=== PATIENT | female | born 1930 | race Caucasian/White ===

== ENCOUNTER 2017-02-06 12:21 | Inpatient (IN) | payer MEDICARE ==
[~2017-02-06] VITALS: Ht 152.4 cm; Wt 45.1 kg
[2017-02-06] MEDS ORDERED: PANT20TA PO (12:35)
[2017-02-06] MEDS ORDERED: SERT50TA PO (12:35)
[2017-02-06] MEDS ORDERED: LEVO50TA5 PO (12:35)
[2017-02-06] MEDS ORDERED: DONE5TAB17 PO (12:35)
[2017-02-06] MEDS ORDERED: ATEN50TA2 PO (12:35)
[2017-02-06 13:19] LABS: DIFF SLIDE NUMBER 148; MEAN CORPUSCULAR HEMOGLOBIN 28.3 pg (27.0-33.0); MEAN CORPUSCULAR HGB CONC 32.3 g/dl (32.0-36.5); MEAN CORPUSCULAR VOLUME 87.5 fl (80.0-96.0); PLATELET COUNT, AUTOMATED 223 k/mm3 (150-450); RED CELL DISTRIBUTION WIDTH 14.3 % (11.5-14.5); WHITE BLOOD COUNT 12.6 K/mm3 (4.0-10.0)
[2017-02-06] MEDS: NS 1,000 ML IV SCH ×3 (13:27→22:52)
[2017-02-06 13:34] LABS: ACANTHOCYTES 2+
[2017-02-06 13:35] LABS: ANISOCYTOSIS 1+
[2017-02-06 13:55] LABS: ANION GAP 19 MEQ/L (8-16); BLOOD UREA NITROGEN 89 MG/DL (7-18); CALCIUM LEVEL 7.7 MG/DL (8.8-10.2); CARBON DIOXIDE LEVEL 15 MEQ/L (21-32); CHLORIDE LEVEL 104 MEQ/L (98-107); CREATININE FOR GFR 3.51 MG/DL (0.55-1.02); GLOMERULAR FILTRATION RATE 13.2 (>32); GLUCOSE, FASTING 94 MG/DL (83-110); SODIUM LEVEL 138 MEQ/L (136-145)
[2017-02-06 14:20] LABS: ABG PARTIAL PRESSURE CO2 27.1 mmHg (35.0-45.0); ABG PARTIAL PRESSURE O2 105.2 mmHg (75.0-100.0); ABG STANDARD HCO3 17.2 MEQ/L (22.0-26.0); ABG TOTAL CO2 15.9 MEQ/L (23.0-31.0); ABG pH (ARTERIAL) 7.362 UNITS (7.350-7.450)
--- NOTE | 2017-02-06 14:21 | REP ---
REASON: Chest pain. COMPARISON: Frontal view obtained as part of a rib series on 11/19/2010 Once again, there is a large, and in fact, huge hiatal hernia. The cardiomediastinal silhouette is unchanged. There is cardiomegaly. No acute patchy parenchymal opacities or pleural effusions have developed in the lung roach. There is no significant change in the appearance of the osseous structures. The bones are demineralized and there are chronic spinal changes. IMPRESSION: Stable appearing chronic changes without evidence of acute cardiopulmonary disease. Signed by Lalo Echeverria DO 02/06/2017 04:48 P
--- NOTE | 2017-02-06 14:22 | REP ---
REASON: Pain after trauma. PRIORS: None. FINDINGS: No acute fracture or destructive osseous lesion. Degenerative change is seen involving the shoulder region with calcifications possibly secondary to chronic calcific supraspinatus tendonitis. Signed by Lalo Echeverria DO 02/06/2017 04:48 P
--- NOTE | 2017-02-06 14:23 | REP ---
REASON: Pain after trauma. COMPARISON: No priors. FINDINGS: No acute fracture or destructive osseous lesion. The mortise is intact. The bones are demineralized. Signed by Lalo Echeverria DO 02/06/2017 04:48 P
--- NOTE | 2017-02-06 14:26 | REP ---
REASON: Pain after trauma. There is a comminuted pelvic symphysis fracture on the left extending to both superior and inferior pubic rami. The bones are demineralized and there are degenerative hip changes bilaterally. There is no evidence of a femoral fracture. Chronic changes are seen involving the imaged spine and the sacroiliac joints. IMPRESSION: Comminuted pubic symphysis fracture as described above. Signed by Lalo Echeverria DO 02/06/2017 04:48 P
--- NOTE | 2017-02-06 15:20 | REP ---
Pain. Prior plain film showed comminuted symphysis pubis fracture extending to the superior and inferior pubic ramus on the left. This examination was performed to followup. There is a comminuted pubic symphysis fracture particularly on the left involving both superior and inferior pubic rami with some CT evidence of fracture involving the medial cortex of the right inferior pubic ramus at the inferior symphysis. The right hip joint space is narrowed. There is mild femoral head and acetabular marginal osteophytosis. There is no evidence of an acute hip fracture or dislocation other than the aforementioned pubic symphysis and rami fractures. There is no CT evidence of a right hip joint effusion. IMPRESSION: 1. Comminuted pubic symphysis fracture and related findings as described above. A pathological fracture should be clinically evaluated for and cannot be ruled out by this exam. 2. No evidence of a right femoral fracture or right hip dislocation. Findings involving the inferior right pubic ramus as described above. Signed by Lalo Echeverria DO 02/06/2017 04:48 P
[2017-02-06] MEDS ORDERED: IBUP200C PO (15:29)
[2017-02-06] MEDS ORDERED: BISACODYL 10 MG SUPP PR PRN (18:00)
[2017-02-06] MEDS ORDERED: BISACODYL 5 MG TAB PO PRN (18:00)
--- NOTE | 2017-02-06 18:02 | ECGEPIP ---
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
--- NOTE | 2017-02-06 18:36 | HPEPDOC ---
General Date of Admission Feb 06, 2017 at 17:40 Primary Care Physician: Lexy Coelho Attending Physician: TIANA TALAVERA MD Chief Complaint The patient is a 86-year-old female admitted with a reason for visit of Bradycardia;Renal Insufficiency. History of Present Illness This H&P is for admission date: 02/06/17: PRIMARY CARE PROVIDER: Dr. Lexy Coelho in [place] CHIEF COMPLAINT: difficulty walking HISTORY OF PRESENT ILLNESS: This is a 86 F with a past medical history of hypertension, hypothyroidism, dementia, depression, and history of multiple rib fractures in the past, and Sjogren syndrome, who was brought by her family to the [facility] emergency department for a 2 day history of difficulty walking and painful weightbearing. Patient's son provided the history as patient has dementia. Son states that the patient was having difficulty walking on and Wednesday , and his mom said she needs help because she has trouble walking, which has progressed. States that the patient complains of right groin pain right-sided hip pain and right-sided back pain. Is unable to tell me if there is any radiation of the pain with the pain feels like patient is unable to accurately give that information due to dementia. However, son states that his mother's pain is exacerbated with walking and weightbearing. Son states that he lives next door to his mother was lives alone but that he goes to her home every morning and has dinner with her every night. And there is no way of knowing or monitoring with the patient does during the daytime. States that he would not be surprised if the patient did have a fall however he and other family members have not witnessed this. 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 In addition, patient's son states that his mother used to weigh 112 pounds and she has since lost weight and is now down to 98 pounds since approximately over the last year. He admits that she does eat breakfast, he does not know about lunch because he is not at her house, and otherwise eats well during dinnertime. He denies of the patient is dehydrated as she drinks a lot of water all the time. He states the patient does get dizzy at times when getting up from lying flat. Patient's son also does not know whether or not the patient has any dysuria, constipation, diarrhea. In addition, review systems is negative for fever, chills, chest pain, shortness of breath, cough, ear ache or pain, runny nose, sore throat, headache, nausea, vomiting, diarrhea, constipation, abdominal pain. Patient's family admits the patient has a bit of swelling of her right hand. Patient admits to pain in one of her fingers in her right hand and weakness. Upon arrival to the ED, vital signs were significant for a pulse that was in the 40s to 50s, with her elevated blood pressure 172/77, and pulse ox that was in 80 to 97% room air. In the ED, a workup was done that was significant for an elevated white blood cell count 12.6, neutrophils of 94, lymphocytes of 6, and so cytosis of 1+, acanthocytes (spur) of 2+, BUN of 89, creatinine of 3.51, GFR of 13.2, and anion gap of 19, a troponin that was negative 1, total creatinine kinase of 369 , a CK-MB of 6.8, an EKG which showed sinus bradycardia with a rate of 47 with a QRS duration of 95, QT/QTc: 492/456, with no ST elevation/depressions with some non-specific T-wave abnormalities. An ABG was done which showed a pH of 7.362, PCO2 of 27.1, and a PaO2 of 105.2 which is consistent with a mixed acid base disorder of metabolic acidosis with a compensatory respiratory alkalosis. Imaging was significant for a negative chest x-ray. Left humerus x-ray which showed no acute fracture or destructive osseous lesion but did show degenerative change involving the shoulder region with calcifications possibly secondary to chronic calcific supraspinatus tendinitis. A R hip/pelvis x-ray which showed a comminuted pubic symphysis fracture. A L ankle x-ray which was negative and showed no fracture. CT scan of the right hip without contrast which showed a comminuted pubic symphysis fracture involving the left superior and inferior pubic rami but some CT evidence of fracture involving the medial cortex of the right inferior pubic ramus at the inferior symphysis and no right femoral fracture right hip dislocation. The CT study stated that pathologic fracture should be clinically evaluated for and cannot be ruled out by this exam. The patient was administered 1 L of normal saline in the ED. ALLERGIES: None. PAST MEDICAL HISTORY: Hypertension Hypothyroidism Sjogren's syndrome Dementia Depression History of multiple rib fractures Has hearing aids Macular degeneration As per son, patient may have possible cancer due to previous bloodwork which patient's PCP has mentioned, however, no workup to identify cancer done. PAST SURGICAL HISTORY: Hysterectomy Cholecystectomy MEDICATIONS: Pantoprazole 20 mg daily Levothyroxine 50 g by mouth daily Atenolol 50 mg daily Donepezil 5 mg daily Sertraline 50 mg daily Ibuprofen 400 mg daily PRN pain SOCIAL HISTORY: Lives at home alone. 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 No illicit drug use. Has one dog and one cat at home. Lives in [place] No sick contacts No recent travel FAMILY HISTORY: Significant for cancer, hypertension, stroke and CODE STATUS: DNR/DNI Has advanced directive. Has Healthcare Proxy: Son Robert Mckinney REVIEW OF SYSTEMS: As stated above. All other review of systems negative except for those mentioned above. PHYSICAL EXAMINATION: Initial ED Vitals: Temperature , blood pressure , pulse , pulse ox: % on liters . General: HEENT: Head: normocephalic, atraumatic. Eyes: Sclera are nonicteric. Nose: No external lesions. Ears: A bit hard of hearing but has hearing aids. Lips intact. Neck: No cervical LAD bilaterally. No thyromegaly. No JVD appreciable. Respiratory: Clear to auscultation bilaterally. Cardiovascular: Regular rhythm, bradycardic rate, with no murmurs, rubs or gallops. Chest: Symmetrical chest rise bilaterally. Abdomen: soft, nontender, nondistended, no hepatosplenomegaly appreciated. Bowel sounds present. Extremities: very thin lower extremities bilaterally with no edema. Neurological: No focal neurologic deficits appreciated bilaterally. Musculoskeletal: No tenderness to palpation of R hip, thigh, or R-side of low back. 5/5 muscle strength in upper and lower extremities bilaterally. Unequal international bank manager strength with L hand international bank manager stronger > R. Unable to flex her R hand fingers. R hand seemed more edematous > L. Able to extend both lower extremities against resistance bilaterally without pain. Neurologic: Cranial nerves 2-12 intact bilaterally. Lymphatics: no palpable lymph nodes, swollen glands. Integumentary: No rashes or lesions seen. Very dry skin. Vascular: +2 dorsalis pedis and radial pulses palpable and symmetrical bilaterally. LABORATORY DATA: See below MICROBIOLOGY: See below Blood cx pending. Urinalysis and Urine Cx pending. Thyroid panel pending. ELECTROCARDIOGRAM: As stated above. RADIOLOGY: Imaging studies as above. ASSESSMENT: 86-year-old female is presenting for a comminuted pubic symphysis fracture, symptomatic sinus bradycardia, leukocytosis, renal insufficiency, and mixed acid base disorder. PLAN: #1. Pubic symphysis comminuted fracture: Consult orthopedics Dr. Jorge Farrell. Rule out pathologic fracture secondary to malignancy. Patient is on bedrest. #2. Symptomatic sinus bradycardia: May be secondary to medication or hypoxia or other etiology. Patient seems to be weak, and is reported to have dizziness at times. Have admitted to telemetry unit. We'll monitor vital signs every 4 hours. Will cycle another 2 sets of troponins q6 hours. Will do an EKG tomorrow morning. Have discontinued atenolol for now. Have ordered a thyroid profile. #3. Leukocytosis: May be secondary to fracture, hemoconcentration, or infectious /inflammatory etiology. Patient also has a history of Sjogren's syndrome. Have ordered urinalysis, urine cultures, blood cultures 2. Follow-up CBC daily. Monitor for fevers and elevated white counts. Follow up on labs when available. #4. Renal insufficiency: BUN 89 and creatinine 2.51 with GFR of 13.2. Have consulted nephrology. Have ordered a urinalysis and urine culture, urine sodium , urine creatinine, and renal ultrasound. Have discontinued patient's home medication of ibuprofen. Avoid nephrotoxic medications. Monitor BMP daily. Also giving IV fluids. #5. Mixed acid base disturbance secondary to renal insufficiency: ABG shows metabolic acidosis with respiratory alkalosis compensation. Have ordered a nephrology consult. #6. Reported weight loss history as per son: Have ordered a liver profile to assess for AST, ALT, and albumin level. #7. Hypertension: Continue to monitor BPs. Follow Nephrology recommendations. #8. Hypothyroidism: Continue levothyroxine 50 mcg daily. #9. Dementia: Continue donepezil. guest services officer consult has been placed. #10. Depression: Continue sertraline 50 mg daily. Consider side effect of Long- QT Syndrome for bradycardia. #11. Sjogren's Syndrome: Continue eyedrops from home if needed. #12. Home medication of pantoprazole 20 mg PO daily can be continued. Patient most likely has a hx of GERD though no supporting documentation has been seen. Will continue for now. guest services officer consult as patient lives alone at home and has dementia. PT/OT/Pain Control: to be decided by Orthopedic Surgeon. Appreciate input. DVT prophylaxis: SCDs for now. CODE STATUS: DNR/DNI Immunizations as per protocol. Home Medications Scheduled Atenolol (Atenolol) 50 Mg Tab 50 MG PO DAILY (Reported) Donepezil Hydrochloride (Donepezil HCl) 5 Mg Tab 5 MG PO DAILY (Reported) Levothyroxine Sodium (Synthroid) 50 Mcg Tab 50 MCG PO DAILY (Reported) Pantoprazole Sodium (Pantoprazole Sodium) 20 Mg Tab 20 MG PO DAILY (Reported) Sertraline Hcl (Sertraline HCl) 50 Mg Tab 50 MG PO DAILY (Reported) Scheduled PRN Ibuprofen (Ibuprofen) 200 Mg Cap 400 MG PO PRN PRN PRN PAIN (Reported) Allergies Coded Allergies: No Known Allergies (Unverified , 02/06/17) Vital Signs As above. Laboratory Data Labs 24H Laboratory Tests 2 02/06/17 13:07: Acanthocytes 2+, Anion Gap 19H, Anisocytosis 1+, Blood Urea Nitrogen 89H, Creatinine 3.51H, Sodium Level 138, Potassium Level 4.0, Chloride Level 104, Carbon Dioxide Level 15L, Calcium Level 7.7L, Total Creatine Kinase 369H, Creatine Kinase MB 6.8H, Creatine Kinase MB Relative Index 1.84, Glomerular Filtration Rate 13.2L, Lymphocytes (Manual) 6L, Neutrophils 94H, Platelet Estimate NORMAL, Troponin I < 0.02 02/06/17 14:15: Arterial Blood pH 7.362, Arterial Blood Partial Pressure CO2 27.1L, Arterial Blood Partial Pressure O2 105.2H, Arterial Blood Total CO2 15.9L, Arterial Blood HCO3 15.0L, Arterial Blood Base Excess -9.0L, Arterial Blood Oxygen Saturation 98.0, Blood Gas Bicarbonate Standard 17.2L 02/06/17 17:51: Urine Amorphous Sediment , Urine Appearance HAZY, Urine Color YELLOW, Urine pH 5.0, Urine Specific [place] 1.015, Urine Protein 2+H, Urine Glucose (UA) NEGATIVE, Urine Ketones NEGATIVE, Urine Urobilinogen 0.2, Urine Bilirubin NEGATIVE, Urine Leukocyte Esterase NEGATIVE, Urine Bacteria (Auto) 2+H, Urine Blood 2+H, Urine Calcium Carbonate Cryst(Auto) , Urine Calcium Oxalate Cryst ( Auto) , Urine Calcium Phosphate Julita (Auto) , Urine Cellular Casts , Urine Cystine Crystals , Urine Granular Casts (Auto) , Urine Hyaline Casts (Auto) 1, Urine Leucine Crystals , Urine Mucus (Auto) SMALL, Urine Nitrite NEGATIVE, Urine Oval Fat Bodies (Auto) , Urine RBC (Auto) 0, Urine Renal Epithelial Cells , Urine Sperm (Auto) , Urine Squamous Epithelial Cells 0, Urine Transitional Epithelial Cells , Urine Trichomonas (Auto) , Urine Triple Phosphate Cryst (Auto ) , Urine Tyrosine Crystals , Urine Uric Acid Crystals (Auto) , Urine WBC (Auto ) 1, Urine Waxy Casts (Auto) , Urine Yeast-Like Cells (Auto) CBC/BMP Laboratory Tests 02/06/17 13:07 Calcium Level 7.7 L, Total Creatine Kinase 369 H, Red Blood Count 4.07, Mean Corpuscular Volume 87.5, Mean Corpuscular Hemoglobin 28.3, Mean Corpuscular Hemoglobin Concent 32.3, Red Cell Distribution Width 14.3 Microbiology Microbiology 02/06/17 Urine Culture, Received Pending Plan / VTE VTE Prophylaxis Ordered?: Yes (SCDs) GME ATTESTATION GME ATTESTATION My preceptor for this patient encounter was Dr. Tiana Talavera, and was physically present in the building during the encounter and was fully available. As needed , all aspects of the patient interview, examination, medical decision making process, and medical care plan development were reviewed and approved by the preceptor. Preceptor is aware and concurs with the plan as stated in the body of this note and will attest to such by his/her cosignature. TOÑA CHACKO OGME-1 Feb 06, 2017 18:36
[2017-02-06 19:50] LABS: T UPTAKE 31 % (30-39); THYROXINE (T4) 6.1 UG/DL (4.5-12.0)
[2017-02-06 20:45] VITALS: BP 173/80
[2017-02-06 23:59] VITALS: BP 147/81
[2017-02-07] VITALS: PULSE 53
[2017-02-07 04:00] VITALS: BP 149/75; PULSE 59
[2017-02-07 05:46] LABS: MEAN CORPUSCULAR HGB CONC 32.3 g/dl (32.0-36.5); MEAN CORPUSCULAR VOLUME 86.7 fl (80.0-96.0); PLATELET COUNT, AUTOMATED 219 k/mm3 (150-450); RED CELL DISTRIBUTION WIDTH 14.4 % (11.5-14.5); WHITE BLOOD COUNT 7.6 K/mm3 (4.0-10.0)
[2017-02-07 05:49] LABS: ALBUMIN 1.8 GM/DL (3.2-5.2); ALBUMIN/GLOBULIN RATIO 0.42 (1.00-1.93); BILIRUBIN,DIRECT 0.2 MG/DL (0.0-0.2); BILIRUBIN,TOTAL 0.4 MG/DL (0.2-1.0); CALCIUM LEVEL 7.4 MG/DL (8.8-10.2); CREATININE FOR GFR 3.11 MG/DL (0.55-1.02); GLOMERULAR FILTRATION RATE 15.1 (>32); POTASSIUM SERUM 3.3 MEQ/L (3.5-5.1); TOTAL PROTEIN 6.1 GM/DL (6.4-8.2)
[2017-02-07] MEDS ORDERED: LORazepam 2 MG/ML VIAL (J2060) IV STA (06:31)
[2017-02-07] MEDS: LEVOTHYROXINE 0.05 MG TAB (50 MCG) PO SCH (06:58)
[2017-02-07 07:07] LABS: BANDS 1 % (< 11); NUCLEATED RED BLOOD CELL 2 % (0-0)
[2017-02-07 07:08] LABS: CRENATED RBC 2+
[2017-02-07 08:00] VITALS: BP 159/70
[2017-02-07] MEDS: NS 1,000 ML IV SCH (08:46)
[2017-02-07] MEDS: MIRALAX *UNIT DOSE* 17GM PACKET PO SCH (09:00)
[2017-02-07] MEDS ORDERED: DONEPEZIL 5 MG TAB PO SCH (09:00)
--- NOTE | 2017-02-07 09:54 | PHACANCOPD ---
PHARMACY VANCOMYCIN DOSING Pt Demographics Demographics Patient Age:86 , Weight:41.100 , Gender: female Adjusted Body Weight Date: 02/07/17, Adjusted Body Weight: Kg Events Past 24 Hours Events Past 24 Hours: YES: Change in CrCl, NO: Dialysis, Diuretic Therapy, Elevation in WBC, Fever, Other, Pending Diagnostics, Pending Procedures Vancomycin Vancomycin indication: positive bc Vancomycin Target Ranges: 15-20 mcg/ml Vancomycin Load Y/N: Yes Load Dose Date Time Vancomycin Load Dose: 1000mg Date: 02/07 Time: 10:00 Vancomycin Dose Date: 02/07/17. Current Vancomycin Dose: [500mg IV q24h @12] Intermittent Dosing?: No Labs Labs Item Value Date Time White Blood Count 12.6 K/mm3 H 02/06/17 1307 White Blood Count 7.6 K/mm3 02/07/17 0519 Creatinine 3.51 MG/DL H 02/06/17 1307 Creatinine 3.11 MG/DL H 02/07/17 0519 Micro Microbiology 02/06/17 Blood Culture - Preliminary, Resulted 02/06/17 Blood Culture - Preliminary, Resulted 02/06/17 Urine Culture, Received Pending Creatinine Clearance Date:02/07/17. Creatinine Clearance: [8.6ml/min using actual BW]. Pending Labs Random vancomycin level 02/09 @06:00 Assessment and Plan Maintaining Current Dose?: Yes Reason for dose change: No Dose Change Pharmacist Note Pharmacist Note Date: 02/07/17. Pharmacist note: pt has been started on vancomycin, she had 2 blood cultures drawn yesterday ~30min apart that were positive for G+ cocci in chains. She has not been on vancomycin here in the past, culture hx is unknown. SCr is elevated although slightly improved from yesterday. I will start her on a 1g vancomycin load and start 500mg q24h tomorrow. I have a random level scheduled in the morning before the 3rd dose. We will continue to monitor. Angel Bean Pharm.D. Feb 07, 2017 09:54
[2017-02-07] MEDS: SERTRALINE HCL 50 MG TAB PO SCH (09:55)
[2017-02-07] MEDS: SENOKOT S TAB PO SCH ×2 (09:55→21:52)
[2017-02-07] MEDS: PANTOPRAZOLE 20 MG TAB PO SCH (09:55)
[2017-02-07] MEDS ORDERED: VANCOMYCIN HCL 1,000 MG, VIAL MATE ADAPTER 1 EACH in D5W 250 ML IV ONE (10:00)
[2017-02-07] MEDS: KCL 20MEQ IN D5/NS 1000ML 1,000 ML IV SCH (11:49)
[2017-02-07 12:00] VITALS: BP 160/70
--- NOTE | 2017-02-07 12:41 | ECGEPIP ---
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
--- NOTE | 2017-02-07 12:45 | REP ---
REASON: Known fracture followup. COMPARISON: Yesterday. The comminuted pubic fracture is obscured by bowel content and external drafter automotive design lead. This limited single view shows no significant change compared to the prior exam. Signed by Lalo Echeverria DO 02/07/2017 01:53 P
--- NOTE | 2017-02-07 15:00 | REP ---
REASON: Renal insufficiency. There are no prior renal ultrasound examination for comparison. The right kidney measures 9.9 x 3 x 4.3 cm. The renal cortical echoes are diffusely increased and there is less than optimal cortical medullary differentiation. There is no evidence of hydronephrosis. There is no evidence of a solid mass. The right renal cortex is universally thinned. The left kidney measures 10.9 x 5 x 5.1 cm. The renal cortical echotexture is similar to that of the right kidney showing no evidence of a solid mass. There is a 1.2 x 1.9 x 1.5 cm sized nearly anechoic structure seen arising from the inferior pole region which exhibits posterior wall enhancement and increased through transmission but has low level echoes within it. There is no evidence of hydronephrosis. There is asymmetric renal cortical thinning not to the degree as seen on the right. There is a Rodriguez balloon catheter in the urinary bladder emptying it. IMPRESSION: 1. Increased renal cortical echoes as described above consistent with medical renal disease and affecting the right kidney greater than the left. Certainly, vascular compromise to the right kidney cannot be ruled out. 2. Complex left renal cyst. Pre and post contrast enhanced renal CT is recommended to insure no evidence of malignant features. 3. Other findings as described above. Signed by Lalo Echeverria DO 02/07/2017 03:17 P
--- NOTE | 2017-02-07 15:06 | IPNPDOC ---
Text Note Date of Service The patient was seen on 02/07/17. NOTE Subjective: Objective: Vitals: (see below) General: No acute distress, laying comfortably in bed. HEENT: Moist mucous membranes. Neck: No JVD or lymphadenopathy Cardiac: RRR, No murmurs Pulm: Clear to auscultation b/l. No wheezing, rhonchi Abd: NT/ND + BS Ext: No edema or cyanosis. Distal pulses intact. Labs (see below) Images: CXR 02/06/13 IMPRESSION: Stable appearing chronic changes without evidence of acute cardiopulmonary disease. X ray left humerus 02/06/17 FINDINGS: No acute fracture or destructive osseous lesion. Degenerative change is seen involving the shoulder region with calcifications possibly secondary to chronic calcific supraspinatus tendonitis x ray hip/pelvis 02/06/17 IMPRESSION: Comminuted pubic symphysis fracture as described above. CT Pelvis 02/06/17 IMPRESSION: 1. Comminuted pubic symphysis fracture and related findings as described above. A pathological fracture should be clinically evaluated for and cannot be ruled out by this exam. 2. No evidence of a right femoral fracture or right hip dislocation. Findings involving the inferior right pubic ramus as described above. Assessment/Plan 1. Pubic symphysis comminuted fracture: Orthopedic consulted. Will need to r/o pathologic fracture secondary to malignancy. Bedrest. 2. Symptomatic sinus bradycardia: Syncope and dizziness noted prior to arrival. BB and Aricept d/c. On Telemetry. TSH wnl 3. Leukocytosis: Likely reactive althourh right hand is warm and swollen. 1 blood cx with gram positive cocci in chains. Started on Vanco. Trend CBC. 4. RU - unknown baseline. Improving. Nephro consulted. Renal u/s pending. Cont IVF 5. Hypertension: Started on amlodipine. Continue to monitor 6. Hypothyroidism: Continue levothyroxine 7. Dementia: D/c donepezil 2/2 bradycardia. director of cardiopulmonary services consult has been placed. 8. Depression: Continue sertraline 50 mg daily. 9. Sjogren's Syndrome: Continue eyedrops from home if needed. DVT prophy: Heparin SQ VS,Fishbone, I+O VS, Fishbone, I+O Laboratory Tests 02/07/17 05:19 Red Blood Count 3.88 L, Mean Corpuscular Volume 86.7, Mean Corpuscular Hemoglobin 28.0, Mean Corpuscular Hemoglobin Concent 32.3, Red Cell Distribution Width 14.4, Neutrophils (%) (Auto) , Lymphocytes (%) (Auto) , Monocytes (%) (Auto) , Eosinophils (%) (Auto) , Basophils (%) (Auto) , Neutrophils # (Auto) , Lymphocytes # (Auto) , Monocytes # (Auto) , Eosinophils # (Auto) , Basophils # (Auto) Vital Signs Date Time Temp Pulse Resp B/P Pulse Ox O2 Delivery O2 Flow Rate FiO2 02/07/17 12:00 97.0 59 18 160/70 97 Room Air I&O- Last 24 Hours up to 6 AM 02/07/17 05:59 Intake Total 1180 ml Output Total 700 ml Balance 480 ml JAMEY REYES MD Feb 07, 2017 15:06
[2017-02-07] MEDS: HEPARIN SOD (PORCINE) 5000 UNITS/ML VIAL SQ SCH ×2 (15:33→21:52)
[2017-02-07 19:37] VITALS: BP 142/66
[2017-02-07 23:59] VITALS: BP 154/67
[2017-02-08] MEDS: KCL 20MEQ IN D5/NS 1000ML 1,000 ML IV SCH (02:44)
[2017-02-08 03:06] VITALS: BP 142/82
[2017-02-08] MEDS: LEVOTHYROXINE 0.05 MG TAB (50 MCG) PO SCH (05:03)
[2017-02-08] MEDS: HEPARIN SOD (PORCINE) 5000 UNITS/ML VIAL SQ SCH ×3 (05:03→21:04)
[2017-02-08 05:33] LABS: BASO % 0.1 % (0.0-1.0); EOS % 0.1 % (0.0-3.0); LARGE UNSTAINED CELL # 0.2 K/mm3 (0.0-0.4); LARGE UNSTAINED CELL % 1.8 % (0.0-4.0); LYMPH # 0.4 K/mm3 (1.5-4.5); LYMPH % 3.1 % (24.0-44.0); MEAN CORPUSCULAR HEMOGLOBIN 28.2 pg (27.0-33.0); MEAN CORPUSCULAR HGB CONC 32.8 g/dl (32.0-36.5); MONO # 0.5 K/mm3 (0.0-0.8); MONO % 5.8 % (0.0-5.0); NEUTROPHILS # 7.8 K/mm3 (1.8-7.7); PLATELET COUNT, AUTOMATED 158 k/mm3 (150-450); RED CELL DISTRIBUTION WIDTH 14.6 % (11.5-14.5); WHITE BLOOD COUNT 8.8 K/mm3 (4.0-10.0)
[2017-02-08 05:48] LABS: CALCIUM LEVEL 7.6 MG/DL (8.8-10.2); CREATININE FOR GFR 2.26 MG/DL (0.55-1.02); GLOMERULAR FILTRATION RATE 21.9 (>32)
[2017-02-08 08:00] VITALS: BP 159/69
[2017-02-08] MEDS ORDERED: POTASSIUM CHLORIDE 10 MEQ SR TABLET PO ONE ×2 (08:00→09:00)
--- NOTE | 2017-02-08 08:45 | REP ---
Right wrist series: Four views. History: Injury in a fall. Findings: Four views of the right wrist demonstrate marked diffuse osteoporosis. There is diffuse soft tissue swelling over the carpus. There are osteoarthritic changes at the first carpometacarpal and first metacarpophalangeal joints. There is osteoarthritic narrowing in the radiocarpal articulation and there is degenerative widening of the navicular lunate space with chondrocalcinosis. Subcortical cyst formation is seen in the distal radius and in the lunate as well as in the capitate. No fracture or subluxation is evident. Dystrophic calcification is seen adjacent to the intact ulnar styloid. Impression: Degenerative changes and diffuse osteoporosis. No acute fracture seen. Signed by Salbador Garcia MD 02/08/2017 12:16 P
--- NOTE | 2017-02-08 08:46 | REP ---
Right hand series: Two views. History: Injury in a fall. Findings: AP and lateral views of the hand are compared with the wrist series. Degenerative changes are noted in the MCP and IP joint of the thumb as well as a lesser amount of osteoarthritis at the DIP joints of the index and long fingers. Diffuse osteoporosis is noted. No fracture is noted. Impression: No acute fracture seen. Signed by Salbador Garcia MD 02/08/2017 12:16 P
[2017-02-08] MEDS: MIRALAX *UNIT DOSE* 17GM PACKET PO SCH (08:49)
[2017-02-08] MEDS: POLYVINYL ALCOHOL OPHTH SOLN 15 ML(LIQUITEARS) OU PRN (08:49)
[2017-02-08] MEDS: SERTRALINE HCL 50 MG TAB PO SCH (08:50)
[2017-02-08] MEDS: PANTOPRAZOLE 20 MG TAB PO SCH (08:51)
[2017-02-08] MEDS: SENOKOT S TAB PO SCH ×2 (08:51→21:04)
--- NOTE | 2017-02-08 09:37 | CR ---
DATE OF CONSULTATION: 02/06/2017 CHIEF COMPLAINT: Lethargy and inability to get out of bed this morning. HISTORY OF PRESENT ILLNESS: I was consulted by the hospitalist service to evaluate . Cee Mckinney. On my examination and questioning of her family today she was brought in due to difficulty arousing her out of bed this morning and refusal to bear weight. The patient has significant dementia and report comes from her family members who are in the room. They state that normally she is able to walk on her own at home and that this morning she was refusing to get out bed. The patient and the family members deny any knowledge or history of any trauma of any kind recently and otherwise recently she has no pertinent complaints. On questioning the patient denies any pain of any kind to include in her pelvis and hips. She denies any neurologic symptoms in the lower extremities. PAST MEDICAL HISTORY: Again significant for multiple medical comorbidities. 1. Dementia. 2. Thyroid dysfunction as well. 3. Other comorbidities as noted. PAST SURGICAL HISTORY: Noncontributory. SOCIAL HISTORY: She is a former smoker. PHYSICAL EXAMINATION: GENERAL: Elderly female in no acute distress. She is awake and alert. She is responsive. She is brought in by two family members that are in the room with her. EXTREMITIES: In the bilateral lower extremities she shows near full flexion of the bilateral hips, knees and ankles. Very comfortable fluid range of motion throughout the bilateral lower extremities with a negative log roll, negative heel tap bilaterally. Bilaterally 2+ dorsalis pedis and posterior tibialis pulse with full intact sensation to light touch throughout. She demonstrates good intact extensor hallucis longus, flexor hallucis longus. There are no gross swelling or masses in the bilateral lower extremities. SKIN: The skin is intact. PELVIS: There is no significant tenderness over the pubic symphysis area and the overlying skin is intact with no swelling or masses. BILATERAL UPPER EXTREMITIES: She is able to bring her arms up to shoulder level and bring her hands up behind her head comfortably. She has some low grade swelling of her right hand and some discomfort with motion which they believe is related to attempts to start the intravenous (IV). There does not appear to be any gross deformity of that hand and the skin is intact. The fingertips are pink, warm and well perfused bilaterally with 2+ radial pulses. X-ray and follow on CT scan of the pelvis show a comminuted somewhat irregular fracture of the left pubic symphysis with some possible extension to the right pubic symphysis and a subtle, nondisplaced fracture of the right inferior pubic ramus. There is some suggestion that this is an irregular fracture on further read of this report, a pathologic fracture cannot be excluded based on this exam. Remaining x-rays of the left humerus and the left ankle show the expected age related changes, otherwise no acute fracture. ASSESSMENT: Fracture of the pubic symphysis and the right inferior pubic ramus as above. PLAN: These are stable fractures and do not anticipate the need for any operative stabilization, especially given her comfort with range of motion. I recommend that to insure that the fractures are stable that we obtain upright AP x-ray of the pelvis in the morning when she is able to be mobilized with physical therapy. Assuming no change in alignment on those x-rays she should be capable to go forward with weightbearing as tolerated. Additionally, I would recommend some evaluation for whether this is a pathologic fracture or not, potentially metastatic bone lesion or a less likely infection. She does have slight leukocytosis on presentation; otherwise she is afebrile and clinically there is low suspicion for active infection at this time but I will discuss with the internal medicine team that she should be evaluated for other nontraumatic causes of this fracture and potentially an x-ray guided bone biopsy might be indicated. I have discussed all the above with the family members who are present. They are satisfied with the treatment plan at this time. cc: Jalil Juan MD
[2017-02-08 10:49] LABS: TOTAL PROTEIN 5.3 GM/DL (6.4-8.2)
[2017-02-08] MEDS ORDERED: VANCOMYCIN HCL 500 MG in D5W MINI-BAG PLUS 100 ML IV SCH (12:00)
[2017-02-08 12:22] VITALS: BP 140/65
--- NOTE | 2017-02-08 13:45 | CR ---
DATE OF CONSULTATION: 02/07/[address] Gan. REASON FOR CONSULTATION: Acute renal failure superimposed on chronic kidney disease. HISTORY OF PRESENT ILLNESS: Mrs. Mckinney is an 86-year-old female with multiple chronic medical problems, which include significant dementia, hypertension, hypothyroidism, and depression. She was brought to the emergency room due to not feeling well and pain in her hip area. On imaging studies, she was found to have pelvic fracture. The patient is quite demented and not able to provide any reliable information. It is not clear whether she fell at home. She lives by herself, and her son lives across the street. Her son noticed that she was having difficulty walking and complained of pain due to which she was brought to the emergency room. Son also reported a weight loss of about 14 pounds over the last few months. PAST MEDICAL AND SURGICAL HISTORY: Significant for: 1. Hypertension. 2. Hypothyroidism. 3. Sjogren syndrome. 4. Dementia. 5. Depression. 6. History of multiple rib fractures in the past. 7. History of macular degeneration. 8. History of chronic kidney disease with baseline function not known. PAST SURGICAL HISTORY: Is significant for: 1. Hysterectomy. 2. Cholecystectomy. MEDICATIONS AT HOME: Her medications include: - pantoprazole 20 mg daily - levothyroxine 50 mcg daily - atenolol 50 mg daily - sertraline 50 mg daily - donepezil 5 mg daily PERSONAL AND SOCIAL HISTORY: The patient lives at home by herself. There is no history of smoking, alcohol, or drug use. FAMILY HISTORY: Is negative for renal failure. REVIEW OF SYSTEMS: The patient herself is not able to provide any information. Apparently, she was agitated through the night and received a dose of Ativan. At this point, she is laying in the bed comfortably. Her son is present in the room, who provided the information. There is no reported fever or chills. There is no reported nausea, vomiting, or diarrhea. Apparently, the patient had difficulty ambulating and complained of hip pain for the last couple of days, due to which she was brought to the emergency room. Prior to this, she has been at her usual baseline function. The patient's son also reported that the patient was seen by her primary care physician about a couple of weeks ago and was told that she does have chronic kidney disease. However, no intervention was deemed necessary. There is no other pertinent information. On physical examination, this elderly female, laying in the bed, without any acute distress. Temperature is 95.8 degrees Fahrenheit, heart rate 60 per minute, and respiratory rate 18 per minute. Blood pressure 158/70 mmHg and oxygen saturation 92% on room air. Head: Is atraumatic. Neck veins are somewhat prominent. Oral mucosa is dry. Ears and nose are unremarkable. Neck is supple and without any thyroid enlargement. Heart sounds are regular. Lungs clear to auscultation. Abdomen is soft and nontender. Bowel sounds are normal. There is no palpable organomegaly. Extremities: Have no cyanosis or clubbing. Skin has no rash or ulcers. Neurologically. she is arousable but not able to provide much information. She is disoriented and confused. LABORATORY DATA: WBC count 7.6, hemoglobin 10.9, and hematocrit 33.6. Sodium 138, potassium 3.3, CO2 17, BUN 90, and creatinine 3.11. Calcium level is 7.4. Total protein 6.1 and albumin 1.8. Imaging studies were reviewed. The patient is noticed to have fracture of her pelvis, both superior and inferior ramus. There was no fracture of the humerus. PROBLEMS: 1. Acute renal failure superimposed on chronic kidney disease. The patient most likely has significant underlying chronic kidney disease. She does not seem to be too dehydrated. However, does not have much oral intake. We will continue to hydrate her with intravenous (IV) fluid. Will get an ultrasound of her kidneys tomorrow. She is not a suitable candidate for dialysis or any other aggressive measures in view of her dementia, DO NOT RESUSCITATE (DNR) status, and multiple comorbid conditions. I discussed with the patient's son about her condition and prognosis. I have explained that the patient is not a suitable candidate for dialysis. At this point, there is no emergent indication for dialysis, as her kidney function has started to improve with IV fluid hydration. 2. Pelvic fractures. The patient has a pelvic fracture which raised the suspicion for pathological fracture, as there is no reported fall. We will check her urine for spot protein and electrophoresis to rule out any possibility of multiple myeloma, as the patient also has renal failure. 3. Hypokalemia. This is related to IV fluids. Will add potassium supplement in the IV fluid and continue to monitor her electrolytes. DISPOSITION: From renal standpoint, the patient can be transferred to a regular medical floor. I thank you for involving me in the care of Mrs. Mckinney. I will follow her along with you.
[2017-02-08] MEDS: [UNRECOGNIZED DRUG - OTHER] IV SCH (14:21)
[2017-02-08] MEDS: POTASSIUM CHLORIDE IV SCH (14:21)
[2017-02-08] MEDS: SODIUM BICARBONATE IV SCH (14:21)
--- NOTE | 2017-02-08 14:42 | IPNPDOC ---
Text Note Date of Service The patient was seen on 02/08/17. NOTE Subjective: Pt denies any complaints. No CP/Palpitations. Objective: Vitals: (see below) General: No acute distress, laying comfortably in bed. HEENT: Moist mucous membranes. Neck: No JVD or lymphadenopathy Cardiac: RRR, No murmurs Pulm: Clear to auscultation b/l. No wheezing, rhonchi Abd: NT/ND + BS Ext: No edema or cyanosis. Distal pulses intact. Labs (see below) Images: CXR 02/06/13 IMPRESSION: Stable appearing chronic changes without evidence of acute cardiopulmonary disease. X ray left humerus 02/06/17 FINDINGS: No acute fracture or destructive osseous lesion. Degenerative change is seen involving the shoulder region with calcifications possibly secondary to chronic calcific supraspinatus tendonitis x ray hip/pelvis 02/06/17 IMPRESSION: Comminuted pubic symphysis fracture as described above. CT Pelvis 02/06/17 IMPRESSION: 1. Comminuted pubic symphysis fracture and related findings as described above. A pathological fracture should be clinically evaluated for and cannot be ruled out by this exam. 2. No evidence of a right femoral fracture or right hip dislocation. Findings involving the inferior right pubic ramus as described above. Assessment/Plan 1. Pubic symphysis comminuted fracture: Orthopedic consulted. Will need to r/o pathologic fracture secondary to malignancy. Does have characteristics of osteoporosis on imaging. Bedrest. 2. Symptomatic sinus bradycardia: Syncope and dizziness noted prior to arrival. BB and Aricept d/c. On Telemetry. TSH wnl. 3. Leukocytosis: Likely reactive although right hand is warm and swollen. 1 blood cx with gram positive cocci in chains. Started on Vanco. Trend CBC. 4. RU - unknown baseline. Improving. Nephro consulted. Renal u/s pending. Cont IVF 5. Hypertension: Started on amlodipine. Continue to monitor. 6. Hypothyroidism: Continue levothyroxine. 7. Dementia: D/c donepezil 2/2 bradycardia. consulting services project manager consult has been placed. 8. Depression: Continue sertraline 50 mg daily. 9. Sjogren's Syndrome: Continue eyedrops from home if needed. DVT prophy: Heparin SQ VS,Fishbone, I+O VS, Fishbone, I+O Laboratory Tests 02/08/17 05:06 Calcium Level 7.6 L, Red Blood Count 3.46 L, Mean Corpuscular Volume 86.0, Mean Corpuscular Hemoglobin 28.2, Mean Corpuscular Hemoglobin Concent 32.8, Red Cell Distribution Width 14.6 H, Neutrophils (%) (Auto) 89.0 H, Lymphocytes (%) (Auto ) 3.1 L, Monocytes (%) (Auto) 5.8 H, Eosinophils (%) (Auto) 0.1, Basophils (%) ( Auto) 0.1, Neutrophils # (Auto) 7.8 H, Lymphocytes # (Auto) 0.4 L, Monocytes # ( Auto) 0.5, Eosinophils # (Auto) 0.0, Basophils # (Auto) 0.0 Vital Signs Date Time Temp Pulse Resp B/P Pulse Ox O2 Delivery O2 Flow Rate FiO2 02/08/17 12:22 97.0 58 18 140/65 97 Room Air I&O- Last 24 Hours up to 6 AM 02/08/17 06:00 Intake Total 2000 ml Output Total 795 ml Balance 1205 ml JAMEY REYES MD Feb 08, 2017 14:42
[2017-02-08 16:00] VITALS: BP 178/72
[2017-02-08] MEDS ORDERED: LORazepam 2 MG/ML VIAL (J2060) IV ONE ×2 (22:30→22:45)
[2017-02-08 23:59] VITALS: BP 164/70
[2017-02-09] MEDS: SODIUM BICARBONATE IV SCH ×2 (03:48→14:07)
[2017-02-09] MEDS: POTASSIUM CHLORIDE IV SCH (03:48)
[2017-02-09] MEDS: [UNRECOGNIZED DRUG - OTHER] IV SCH (03:48)
[2017-02-09 03:49] VITALS: BP 220/90
[2017-02-09 04:08] VITALS: BP 224/100
[2017-02-09] MEDS ORDERED: ATENOLOL 50 MG TAB PO ONE (04:15)
[2017-02-09] MEDS: LEVOTHYROXINE 0.05 MG TAB (50 MCG) PO SCH (04:17)
[2017-02-09] MEDS: HEPARIN SOD (PORCINE) 5000 UNITS/ML VIAL SQ SCH ×3 (04:24→20:24)
[2017-02-09 05:08] VITALS: BP 162/80
[2017-02-09 05:43] LABS: BASO % 0.1 % (0.0-1.0); EOS % 0.2 % (0.0-3.0); LARGE UNSTAINED CELL # 0.1 K/mm3 (0.0-0.4); LARGE UNSTAINED CELL % 1.4 % (0.0-4.0); LYMPH # 0.4 K/mm3 (1.5-4.5); LYMPH % 3.8 % (24.0-44.0); MEAN CORPUSCULAR HEMOGLOBIN 27.7 pg (27.0-33.0); MEAN CORPUSCULAR HGB CONC 32.1 g/dl (32.0-36.5); MEAN CORPUSCULAR VOLUME 86.2 fl (80.0-96.0); MONO # 0.2 K/mm3 (0.0-0.8); MONO % 2.2 % (0.0-5.0); NEUTROPHILS # 8.6 K/mm3 (1.8-7.7); NEUTROPHILS % 92.3 % (36.0-66.0); PLATELET COUNT, AUTOMATED 140 k/mm3 (150-450); RED CELL DISTRIBUTION WIDTH 14.8 % (11.5-14.5); WHITE BLOOD COUNT 9.3 K/mm3 (4.0-10.0)
[2017-02-09 05:58] LABS: ALBUMIN 1.4 GM/DL (3.2-5.2); CALCIUM LEVEL 8.1 MG/DL (8.8-10.2); CREATININE FOR GFR 1.59 MG/DL (0.55-1.02); GLOMERULAR FILTRATION RATE 32.8 (>32); PHOSPHORUS LEVEL 1.3 MG/DL (2.5-4.9); POTASSIUM SERUM 3.6 MEQ/L (3.5-5.1)
[2017-02-09 08:00] VITALS: BP 182/76
[2017-02-09] MEDS: MIRALAX *UNIT DOSE* 17GM PACKET PO SCH (09:05)
[2017-02-09] MEDS: SERTRALINE HCL 50 MG TAB PO SCH ×2 (09:09→20:24)
[2017-02-09] MEDS: K-PHOS ORIGINAL (POT.ACID PHOSPHATE) 500MG TAB PO SCH ×2 (09:09→20:24)
[2017-02-09] MEDS: SENOKOT S TAB PO SCH ×2 (09:09→20:24)
[2017-02-09] MEDS: PANTOPRAZOLE 20 MG TAB PO SCH (09:09)
[2017-02-09 11:44] VITALS: BP 168/68
[2017-02-09] MEDS: ISOSORBIDE DIN. (ISORDIL) 5 MG TAB PO SCH ×2 (12:00→17:18)
[2017-02-09] MEDS ORDERED: VANCOMYCIN HCL 750 MG, VIAL MATE ADAPTER 1 EACH in D5W 250 ML IV SCH (12:00)
[2017-02-09] MEDS ORDERED: cefTRIAXone SOD 1 GM in D5W MINI-BAG PLUS 50 ML IV SCH (13:00)
--- NOTE | 2017-02-09 13:35 | PHACANCOPD ---
PHARMACY VANCOMYCIN DOSING Pt Demographics Demographics Patient Age:86 , Weight:44.200 , Gender: female Adjusted Body Weight Date: 02/07/17, Adjusted Body Weight: Kg Events Past 24 Hours Events Past 24 Hours: NO: Change in CrCl, Dialysis, Diuretic Therapy, Elevation in WBC, Fever, Other, Pending Diagnostics, Pending Procedures Vancomycin Vancomycin indication: positive bc Vancomycin Target Ranges: 15-20 mcg/ml Vancomycin Load Y/N: Yes Load Dose Date Time Vancomycin Load Dose: 1000mg Date: 02/07 Time: 10:00 Vancomycin Dose Date: 02/09/17. Current Vancomycin Dose: [750MG IV Q24H @ 12] Date: 02/07/17. Current Vancomycin Dose: [500mg IV q24h @12] Intermittent Dosing?: No Labs Labs Item Value Date Time Creatinine 3.11 MG/DL H 02/07/17 0519 Creatinine 2.26 MG/DL H 02/08/17 0506 Creatinine 1.59 MG/DL H 02/09/17 0514 White Blood Count 12.6 K/mm3 H 02/06/17 1307 White Blood Count 7.6 K/mm3 02/07/17 0519 White Blood Count 8.8 K/mm3 02/08/17 0506 White Blood Count 9.3 K/mm3 02/09/17 0514 Random Vancomycin Level 14.0 UG/ML 02/09/17 0514 Micro Microbiology 02/08/17 Blood Culture - Preliminary, Resulted No growth after 24 hours . All specim... 02/08/17 Blood Culture - Preliminary, Resulted No growth after 24 hours . All specim... 02/06/17 Blood Culture - Preliminary, Resulted 02/06/17 Blood Culture - Preliminary, Resulted Staphylococcus Aureus Strep Agalactiae Group B 02/06/17 Urine Culture - Final, Complete Creatinine Clearance Date:02/09/17. Creatinine Clearance: [19 ML/MIN]. Date:02/07/17. Creatinine Clearance: [8.6ml/min using actual BW]. Pending Labs Random vancomycin level 02/11 @11:00 Assessment and Plan Maintaining Current Dose?: No Reason for dose change: Trough too low Pharmacist Note Pharmacist Note Date: 02/09/17. Pharmacist note: Patients Vancomycin random returned at 14 after two doses. Dose was increased to 750mg iv q24h. Trough profiled after 2 more doses ( 02/11 @11). Preliminary blood cultures identified Staph aureus and GBS. CrCl has improved sgnificantly. Continue to monitor renal function and adjust dose as needed. Date: 02/07/17. Pharmacist note: pt has been started on vancomycin, she had 2 blood cultures drawn yesterday ~30min apart that were positive for G+ cocci in chains. She has not been on vancomycin here in the past, culture hx is unknown. SCr is elevated although slightly improved from yesterday. I will start her on a 1g vancomycin load and start 500mg q24h tomorrow. I have a random level scheduled in the morning before the 3rd dose. We will continue to monitor. JAYLEEN WALDRON PHARMACY Feb 09, 2017 13:35
--- NOTE | 2017-02-09 13:59 | IPN ---
DATE: 02/09/2017 Patient seen and examined. Was delirious and agitated. Was also hypertensive. Given blood pressure medications and also a dose of Ativan. This morning, patient was very sleepy but arousable, follows command. No acute distress. Denies any chest pain, pressure or discomfort. Does report right hand pain. No fevers, chill. Denies any abdominal pain. Vital signs: Temperature 96.2, pulse 67, respiration 18, blood pressure 168/68, pulse ox 95% on room air. LABORATORY: WBC 9.3, hemoglobin and hematocrit 9.1/28.2, platelets 140. Chemistry: Sodium 143, potassium 3.6, chloride 114, bicarbonate 19, BUN 59, creatinine 1.59. PHYSICAL EXAMINATION: General: Patient in no acute distress, sleeping, mildly somnolent but arousable, follows command. HEENT: Moist mucous membrane. Normocephalic, atraumatic. Neck: Supple. Cardiac: Regular rate and rhythm. Normal S1, S2. Pulmonary: Bilaterally clear to auscultation, no wheeze, rales or rhonchi. Abdomen: Soft, nontender, nondistended. Positive bowel sounds. Extremities: Right hand second metatarsophalangeal joint has some erythema, tender when moved. Mild swollen. Otherwise no edema bilateral lower extremities. ASSESSMENT AND PLAN: This is an 86-year-old female patient with underlying medical history of dementia, baseline ambulatory, hypertension, hypothyroidism, depression, history of multiple rib fractures in the past, Sj gren's syndrome, who was brought in by family to the emergency room with 2 day history of difficulty walking, painful with weight bearing and falls, was found to be bradyarrhythmic. Patient admitted for pubic symphysis fracture, symptomatic sinus bradycardia, leukocytosis, renal insufficiency. PROBLEMS: 1. Pubic comminuted fracture, orthopedics consulted. Weight bearing as per orthopedics, physical therapy as tolerated. Rule out pathological fracture secondary to malignancy. More characteristic of osteoporosis based on presentation. 2. Symptomatic sinus bradycardia, holding beta blockers and Aricept. Telemetry monitoring. TSH within normal limits. Will continue to monitor on telemetry. Avoid beta blockers. Seek alternative agents for blood pressure control. 3. Bacteremia. Repeat blood culture sent. Initial blood culture positive for staphylococcus aureus and group B strep. Antibiotic Rocephin and vancomycin for now. Will look for sources of infection, possible sources include pneumonia versus cellulitis. Will consider infectious disease (ID) consultation. UA negative. 4. Leukocytosis. Possibly reactive, possibly secondary to infectious etiology. Blood culture appreciated as above. Right hand is warm and swollen. X-ray appreciated. We will get MRI. Will continue infectious disease consultation. On Rocephin and vancomycin for now. 5. Acute kidney injury (RU), unknown baseline, currently improving with IV hydration. Ultrasound renal, IV fluids, nephrology consulted. Multiple myeloma workup has been sent. Will continue to follow. 6. Hypothyroidism. Continue levothyroxine. 7. Dementia, holding Aricept secondary to bradyarrhythmia. Patient and family services (PFS) consulted. Supportive care. Zoloft has been increased given patient agitated. 8. Delirium secondary to pain and underlying dementia. 9. Supportive care. Zoloft has been increased. 10. Depression, continue Zoloft. 11. Sj gren's syndrome, eye drops. 12. Encephalopathy secondary to underlying infection versus dementia versus pain. Speech and swallow, supportive care. 13. Deep venous thrombosis (DVT) prophylaxis, heparin subcutaneous. 14. Hypertension. Norvasc dose has been increased. Isosorbide dinitrate has been added, titrate as needed. Avoid beta blockers. DISPOSITION: Pending clinical improvement, improvement of oral intake, physical therapy, Patient and family services, underlying workup.
[2017-02-09] MEDS: POTASSIUM PHOSPHATE IV SCH (14:07)
[2017-02-09] MEDS: [UNRECOGNIZED DRUG - OTHER] IV SCH (14:07)
--- NOTE | 2017-02-09 17:19 | IPN ---
DATE: 02/09/2017 SUBJECTIVE: This is an 86-year-old female who was seen and examined at bedside. Overnight, the patient became more agitated, hypertensive. She did receive a one time dose of Ativan. Because of her hypertension with systolic in the 220s, her atenolol dose was restarted and received a time dose of Atenolol 50 mg. Apparently there is a concern about her Medical Orders for Self-sustaining Treatment (MOLST) form. At this time, she remains DO NOT RESUSCITATE / DO NOT INTUBATE. Patient herself continues to be very sleepy and history is more difficulty to obtain but denies any chest pain, shortness of breath. Still reports pain to her hip. OBJECTIVE: VITAL SIGNS: Blood pressure 168/68, heart rate 67, temperature 96.2, respiratory rate 18, pulse oximetry 95% on room air. Intake and output for the last 24 hours: 2030 and 1120. Positive 910. No bowel movement documented. Weight is 44.2 kg, yesterday was 42.6. GENERAL: She was lying in bed. Appears lethargic. No significant change compared to the yesterday. She answers questions appropriately though she is not able to recall where she is. HEENT: Very dry oral mucosa. Closes her eyes throughout her physical exam. NECK: Supple. Trachea is midline. No jugular venous distention (JVD). CHEST: Symmetric chest rise. No accessory muscle use. Breath sounds were clear to auscultation bilaterally without rales or rhonchi. HEART: Regular rate and rhythm, S1-S2 present. Regular sounding. ABDOMEN: Soft, nontender, nondistended. Bowel sounds present. No guarding. No rebound. EXTREMITIES: No pedal edema. Pedal pulses present bilaterally. Right hand is tender to palpation, however recently had an x-ray that did not show any evidence of fracture. LABORATORY DATA: WBC 9.3, hemoglobin 9.1, hematocrit 28.2, platelets 140. Sodium 143, potassium 3.6, chloride 114, carbon dioxide 19, BUN 59, creatinine 1.59 improving, yesterday 78 and 2.26, glucose 129, calcium 8.1, phosphorus 1.3, albumin 1.4. Repeat blood cultures negative. First blood culture was positive for Gram-positive cocci. IMPRESSION AND PLAN: Ms. Mckinney is an 86-year-old female admitted for hip pain found to have pelvis ramus fracture. 1. Acute renal failure superimposed on chronic kidney disease (CKD). She continues to be clinically dry. Will continue intravenous (IV) fluid however have adjusted her fluid to include potassium phosphate in her fluid due to low phosphate level. She is not a suitable candidate for dialysis due to advanced dementia and comorbidities. Her renal function today appears to be improving compared to yesterday. 2. Pelvic fracture. There is concern for pathological fracture. Her workup for malignancy is pending at this time. 3. Hypokalemia. Continue potassium in IV fluid. Primary team has also added potassium phosphate. 4. Hypophosphatemia. Had added phosphate to her IV fluid. Recommend increase oral intake. 5. Bacteremia. First two set of the blood culture positive for Gram-positive cocci. She is on vancomycin and Rocephin was started today. Repeat blood cultures are pending. My preceptor for this patient encounter was Dr. Nick Mckinney. The preceptor was physically present in the building during the encounter and was fully available as needed. All aspects of the patient interview, examination, medical decision making process, and medical care plan development were reviewed and approved by the preceptor. The preceptor is aware and concurs with the plan as stated in the body of this note and will attest to such by his co-signature. JUSTINE
[2017-02-09] MEDS: ACETAMINOPHEN TAB 650MG DOSE (2X325MG) PO PRN (18:18)
[2017-02-09 19:19] VITALS: BP 151/71
--- NOTE | 2017-02-09 20:28 | IPN ---
DATE: 02/08/2017 SUBJECTIVE: This is an 86-year-old female who was seen and examined at bedside. Overnight, had a hand x-ray performed due to fall. Per family, patient continues to be sleepy, lethargic, tired, otherwise no reported chest pain, shortness of breath, vomiting, fevers, or chills. OBJECTIVE: VITAL SIGNS: Blood pressure 159/69, heart rate 58, respiratory rate 18, pulse oximetry 97% on room air, temperature 96.3. Intake and output for the last 24 hours: 2040 and 1000. No bowel movement documented. Weight is 42.6 kg, yesterday was down to 45.5, two separate beds, question accuracy. GENERAL: She is lying in bed sleeping comfortably, arousable to verbal and tactile stimuli. HEENT: Normocephalic, atraumatic. Very dry oral mucosa. Pupils equal and reactive to light. NECK: Supple. No jugular venous distention (JVD). CHEST: Symmetric chest rise. No accessory muscle use. Breath sounds were clear to auscultation bilaterally. HEART: Regular rate and rhythm, S1, S2 normal. Did not appreciate murmurs, rubs, or gallops. ABDOMEN: Soft, nontender, nondistended. Bowel sounds present. No guarding. No rebound. EXTREMITIES: No pedal edema. Pedal pulses present bilaterally. Very dry skin. LABORATORY DATA: WBC 8.8, hemoglobin 9.7, mildly decreased from yesterday 10.9, hematocrit 29.8, platelets 158. Sodium 142, potassium 3, yesterday 3.3, chloride 112, carbon dioxide 16, BUN 78, creatinine 2.26, glucose 138, calcium 7.6, magnesium 2.1, total protein 5.3. Preliminary blood culture is positive for two out of two Gram-positive cocci in chains. Urine culture negative. Hand x-ray shows no acute fractures seen. Wrist x-ray showed degenerative changes and diffuse osteoporosis. IMPRESSION AND PLAN: Ms. Mckinney is an 86-year-old female with history of underlying dementia, hypertension, hypothyroidism, admitted for difficulty walking, found to have pubic symphysis fracture and acute kidney injury. 1. [id number] kidney disease. Creatinine level back in 2014 was 1.3. Her worsening renal function is likely due to dehydration. Continue fluid resuscitation; however, due to her continued acidotic state we have adjusted her fluid to D5 1/2 normal saline with sodium bicarbonate with potassium at 70 mL/hr. Her renal function shows improvement today compared to yesterday. Continue holding home dose of ibuprofen. 2. Metabolic acidosis secondary to renal failure. IV fluid has been adjusted as mentioned above. 3. Bacteremia. Blood cultures drawn on admission show two out of two bottles positive for Gram-positive cocci in chains. Have repeated blood cultures. She is on vancomycin 500 mg daily. 4. Comminuted pubic symphysis fracture with concern for pathological fracture. Has been evaluated by orthopedics. Currently, there is no plan for surgery. She has a history of abnormal serum protein electrophoresis (SPEP) in the past. Have ordered SPEP, urine protein electrophoresis (UPEP) immunotyping, free kappa and lambda chains to further evaluate for bone pathology. 5. Symptomatic sinus bradycardia. Home dose beta nayely and donepezil have been discontinued. 6. Hypokalemia. Already received potassium supplementation. Continue potassium in IV fluid. 7. Anemia. No emergent need for transfusion at this time. My preceptor for this patient encounter was Dr. Nick Mckinney. The preceptor was physically present in the building during the encounter and was fully available as needed. All aspects of the patient interview, examination, medical decision making process, and medical care plan development were reviewed and approved by the preceptor. The preceptor is aware and concurs with the plan as stated in the body of this note and will attest to such by his co-signature. JUSTINE
[2017-02-10 00:24] VITALS: BP 158/78
[2017-02-10] MEDS: ACETAMINOPHEN TAB 650MG DOSE (2X325MG) PO PRN ×3 (00:43→15:39)
[2017-02-10 04:27] VITALS: BP 154/67
[2017-02-10] MEDS: HEPARIN SOD (PORCINE) 5000 UNITS/ML VIAL SQ SCH (05:39)
[2017-02-10] MEDS: POLYVINYL ALCOHOL OPHTH SOLN 15 ML(LIQUITEARS) OU PRN (05:39)
[2017-02-10] MEDS: LEVOTHYROXINE 0.05 MG TAB (50 MCG) PO SCH (05:39)
[2017-02-10] MEDS: ISOSORBIDE DIN. (ISORDIL) 5 MG TAB PO SCH (05:39)
[2017-02-10] MEDS: POTASSIUM PHOSPHATE IV SCH (05:40)
[2017-02-10] MEDS: [UNRECOGNIZED DRUG - OTHER] IV SCH (05:40)
[2017-02-10] MEDS: SODIUM BICARBONATE IV SCH (05:40)
[2017-02-10 06:22] LABS: ALBUMIN 1.3 GM/DL (3.2-5.2); CALCIUM LEVEL 7.9 MG/DL (8.8-10.2); CREATININE FOR GFR 1.23 MG/DL (0.55-1.02); GLOMERULAR FILTRATION RATE 44.2 (>32); MAGNESIUM LEVEL 1.3 MG/DL (1.8-2.4); PHOSPHORUS LEVEL 4.6 MG/DL (2.5-4.9); POTASSIUM SERUM 3.9 MEQ/L (3.5-5.1)
[2017-02-10 06:30] LABS: BASO % 0.1 % (0.0-1.0); EOS # 0.1 K/mm3 (0.0-0.50); EOS % 0.6 % (0.0-3.0); LARGE UNSTAINED CELL # 0.2 K/mm3 (0.0-0.4); LARGE UNSTAINED CELL % 1.4 % (0.0-4.0); LYMPH # 0.8 K/mm3 (1.5-4.5); LYMPH % 4.6 % (24.0-44.0); MEAN CORPUSCULAR HEMOGLOBIN 27.9 pg (27.0-33.0); MEAN CORPUSCULAR HGB CONC 32.4 g/dl (32.0-36.5); MEAN CORPUSCULAR VOLUME 85.9 fl (80.0-96.0); MONO # 0.3 K/mm3 (0.0-0.8); MONO % 2.2 % (0.0-5.0); NEUTROPHILS # 12.1 K/mm3 (1.8-7.7); NEUTROPHILS % 91.2 % (36.0-66.0); PLATELET COUNT, AUTOMATED 158 k/mm3 (150-450); RED CELL DISTRIBUTION WIDTH 14.7 % (11.5-14.5); WHITE BLOOD COUNT 13.3 K/mm3 (4.0-10.0)
[2017-02-10 07:38] LABS: ALBUMIN 2.08 GM/DL (3.29-5.55); ALBUMIN % 39.2 % (55.8-66.1); GAMMA GLOBULIN % 17.9 % (11.1-18.8)
[2017-02-10 08:00] VITALS: BP 171/81
--- NOTE | 2017-02-10 08:33 | REP ---
MRI study of the right hand without contrast: History: Right hand pain. Redness and swelling. Comparison radiographs February 07 2017. Technique: Sagittal, axial and coronal imaging planes are utilized. There is rather extensive motion artifact on all but the axial T1-weighted sequence. Several were repeated. The patient apparently had difficulty understanding instructions and was unable to hold still. Findings: Cortical and medullary bone signal intensity are normal on T1-weighted scans in the carpal bones, metacarpal bones and distal radius and ulna. There is no MR evidence of osteomyelitis. There is a small subcortical cyst in the volar and ulnar aspect of the distal radius as seen radiographically. There is a similar subcortical cyst in the proximal pole of the capitate. There is a small cyst in the lateral aspect of the lunate. There is no evidence of soft tissue abscess. No tendon disruption is appreciated. Impression: The study is limited due to motion artifact. No MR evidence of osteomyelitis or soft tissue abscess is appreciated. Arthritis associated subcortical cysts are seen as described above and as seen radiographically. Signed by Salbador Garcia MD 02/10/2017 06:13 P
[2017-02-10] MEDS ORDERED: ATENOLOL 50 MG TAB PO SCH (09:00)
[2017-02-10] MEDS ORDERED: MAG SULF 1GM/100ML (MAG RUN) 1 GM in APPROPRIATE DILUENT 1 EA IV SCH (09:00)
[2017-02-10] MEDS: PANTOPRAZOLE 20 MG TAB PO SCH (09:04)
[2017-02-10] MEDS: SERTRALINE HCL 50 MG TAB PO SCH ×2 (09:04→20:05)
[2017-02-10] MEDS: SENOKOT S TAB PO SCH ×2 (09:04→20:05)
[2017-02-10] MEDS: MAG SULF 1GM/100ML (MAG RUN) 1 GM in APPROPRIATE DILUENT 1 EA IV SCH ×3 (09:06→11:00)
[2017-02-10] MEDS: MIRALAX *UNIT DOSE* 17GM PACKET PO SCH (09:06)
[2017-02-10 10:25] LABS: URIC ACID 2.9 MG/DL (2.6-6.0)
[2017-02-10] MEDS ORDERED: SCOPOLAMINE 1.5 MG TRANSDERMAL TD PRN (11:30)
[2017-02-10] MEDS ORDERED: ONDANSETRON 4MG/2ML VIAL (J2405) IV PRN (11:30)
[2017-02-10] MEDS: ISOSORBIDE DIN (ISORDIL) 10 MG TAB PO SCH ×2 (12:00→17:00)
[2017-02-10 14:35] VITALS: BP 158/72
[2017-02-10] MEDS: MORPHINE 10MG/0.5ML ORAL CONCENTRATE SOLUTION U/D SL PRN (18:42)
--- NOTE | 2017-02-10 18:43 | IPN ---
DATE: 02/10/2017 SUBJECTIVE: The patient is seen and examined. No acute events overnight. The patient continued to report right hand pain and left ankle pain. Denies any chest pain, pressure, discomfort. Denies any shortness of breath. Continues to have poor oral intake. Poor historian. Family meeting was held. Based on recurrent Staphylococcus aureus and poor oral intake, the patient would not a percutaneous endoscopic gastrostomy (PEG) tube for feeding. Family believes the patient will elect to have comfort measures only. Subsequently, the patient was made COMFORT MEASURES ONLY with hospice consultation. VITAL SIGNS: Temperature 97.7, pulse 65, respirations 17, blood pressure 158/72, pulse oximetry 91% on room air. LABORATORY DATA: WBC 13.3, hemoglobin and hematocrit 9.3 over 28.7, platelets 158. Chemistry: Sodium 141, potassium 3.9, chloride 110, bicarbonate 22, BUN 43, creatinine 1.23, magnesium 1.3 supplemented. PHYSICAL EXAMINATION: GENERAL: Patient in no acute distress. Comfortable, arousable. Follows commands. HEENT: Moist mucous membranes. Normocephalic, atraumatic. NECK: Supple. CARDIAC: Regular rate and rhythm. Normal S1, S2. PULMONARY: Bilaterally clear to auscultation. No wheezes, rales, or rhonchi. ABDOMEN: Soft, nontender, nondistended. Positive bowel sounds. EXTREMITIES: Right hand and wrist swollen with mild erythema and left ankle swollen, painful to palpation. 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 Was found to be bradyarrhythmic. Admitted for pubic symphysis fractures, symptomatic bradycardia, leukocytosis, renal insufficiency. PROBLEMS: 1. Pubic symphysis fracture. Orthopedic was initially consulted. Weightbearing as per orthopedic. Physical therapy was initially ordered. Workup for multiple myeloma has been sent for pathological fracture secondary to malignancy. The patient does have a history of MGUS. Pain medication as ordered. Patient currently is comfort measures only. 2. Symptomatic bradycardia. Withholding beta nayely and Aricept. Telemetry monitoring originally observed. Thyroid stimulating hormone (TSH) appreciated. Patient currently comfort measures only. Telemetry subsequently discontinued. 3. Staphylococcus aureus bacteremia. Repeat blood culture was sent. Return also shows Staphylococcus aureus. The patient was treated with antibiotics Rocephin and Vancomycin with no improvement. Initially consider to consult infectious disease, but after discussion with family, given the patient is not eating and with poor oral intake, family believes patient would like to be on comfort measures only. Subsequently, antibiotics and laboratory studies were discontinue. Further study including echocardiogram (echo) was also discontinued, and will not do invasive testing such as arthrocentesis to rule out septic arthritis. Urinalysis (UA) has been negative. 4. Leukocytosis, likely secondary to underlying infection. Cultures have been appreciated. The patient currently on comfort measures only. MRI of the ribs appreciated but was poor study, but given that patient currently is comfort measures only and will not do additional laboratory and with no way of monitoring the effect of antibiotics on the patient, antibiotics have been discontinued at this point. 5. Acute kidney injury (RU). Unknown baseline. Improved with intravenous (IV) fluids. IV fluids have been discontinued. Patient currently comfort measures only. Multiple myeloma workup has been sent. The patient has a history of MGUS. 6. Hypothyroidism. Continue levothyroxine. 7. Advanced dementia. Holding Aricept secondary to bradyarrhythmia. Supportive care. Patient and family services (PFS) consulted. Hospice consulted, but patient has not been a candidate, but will be on comfort measures only for now. Zoloft has been increased for increased agitation. 8. Delirium secondary to underlying dementia. Supportive care. 9. Depression. Continue home medication. 10. 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 11. Encephalopathy secondary to underlying infection, dementia versus pain. Continue supportive care. Patient currently comfort measures only. 12. Hypertension. Continue Norvasc, isosorbide dinitrate. 13. Failure to thrive and severe protein calorie malnutrition. Hospice has been consulted. Supportive care. Ensure supplementation. Encourage oral intake. 14. Deep venous thrombosis (DVT) prophylaxis: Patient currently comfort measures only. Venodyne sequential compression device. DISPOSITION: Hospice. Social work has been consulted. Hospice versus comfort measures only while in the hospital, versus nursing with comfort measures only. Will further meet with family and addiction social worker for further disposition recommendation.
--- NOTE | 2017-02-10 21:47 | IPN ---
DATE: 02/10/2017 SUBJECTIVE: This is an 86-year-old female who was seen and examined at bedside. Overnight, her blood culture came back positive for Staphylococcus aureus. Per family patient continues to be lethargic, not communicative. Review of systems could not be obtained due to patient's lethargic state. OBJECTIVE: VITAL SIGNS: Blood pressure 171/81, heart rate 70, temperature 98.4, respiratory rate 20, pulse oximetry 95% on room air. INTAKE AND OUTPUT FOR THE LAST 24 HOURS: 2710 and 1625, weight is 45.1 kg. GENERAL: Patient is lying in bed. Comfortable. No acute distress, however she was arousable to tactile and painful stimuli. HEENT: Very dry oral mucosa. Closes her eyes throughout her physical exam. Pupils reactive to light. NECK: Supple. No jugular venous distention (JVD). CHEST: Symmetric chest rise. No accessory muscle use. Breath sounds were diminished but clear. HEART: Regular rate and rhythm, S1-S2 normal. Could not appreciate any murmurs, rubs or gallops. ABDOMEN: Soft, nontender, nondistended. Bowel sounds present. No guarding. No rebound. EXTREMITIES: No pedal edema. Pedal pulses present bilaterally. Right upper extremity very tender to palpation with edematous changes. LABORATORY DATA: WBC 13.3, hemoglobin 9.3, hematocrit 28.7, platelets 158. Sodium 141, potassium 3.9, chloride 110, carbon dioxide 22, BUN 43, creatinine 1.23. Glucose 109, calcium 7.9, magnesium 1.3. CRP 16.4, albumin 1.3. Urine culture is negative. Blood culture three sets positive for Staphylococcus aureus. IMAGING: MR of her upper extremity is limited study due to artifact. No evidence of osteomyelitis or soft tissue abscess. Arthritis associated subcortical cyst. IMPRESSION AND PLAN: Ms. Mckinney is an 86-year-old female with underlying dementia, hypertension, hypothyroidism admitted for fracture, renal failure secondary to dehydration with Staphylococcus aureus bacteremia. 1. Acute on chronic kidney disease. Renal function is slowly improving with fluid resuscitation. Unfortunately, she is still not taking anything by mouth and per family the patient is not to have PEG tube. 2. Metabolic acidosis secondary to renal failure, improved. 3. Comminuted pubic symphysis fracture. Was evaluated by orthopedics. 4. Hypokalemia. Resolved. Potassium has been repleted. 5. Hypomagnesemia. Magnesium has been ordered. 6. Methicillin-susceptible Staphylococcus aureus bacteremia. Case was discussed with Dr. Conor and family. At this time, there is discussion of COMFORT MEASURE ONLY. If the patient becomes COMFORT MEASURE ONLY status, then we will sign off. My preceptor for this patient encounter was Dr. Nick Mckinney. The preceptor was physically present in the building during the encounter and was fully available as needed. All aspects of the patient interview, examination, medical decision making process, and medical care plan development were reviewed and approved by the preceptor. The preceptor is aware and concurs with the plan as stated in the body of this note and will attest to such by his co-signature. JUSTINE
[2017-02-11 00:09] LABS: FREE KAPPA LIGHT CHAINS SERUM 63.04 mg/L (3.30-19.40); FREE LAMBDA LIGHT CHAINS SERUM 50.27 mg/L (5.71-26.30); KAPPA/LAMBDA RATIO SERUM 1.25 (0.26-1.65)
[2017-02-11] MEDS: LORazepam 1 MG TAB PO PRN ×2 (00:50→14:34)
[2017-02-11] MEDS: MORPHINE 10MG/0.5ML ORAL CONCENTRATE SOLUTION U/D SL PRN ×4 (01:28→20:05)
[2017-02-11] MEDS: ACETAMINOPHEN TAB 650MG DOSE (2X325MG) PO PRN (01:31)
[2017-02-11] MEDS: LEVOTHYROXINE 0.05 MG TAB (50 MCG) PO SCH (06:05)
[2017-02-11] MEDS: ISOSORBIDE DIN (ISORDIL) 10 MG TAB PO SCH ×3 (06:08→15:57)
[2017-02-11] MEDS: MIRALAX *UNIT DOSE* 17GM PACKET PO SCH (09:45)
[2017-02-11] MEDS: SENOKOT S TAB PO SCH ×2 (09:45→20:05)
[2017-02-11] MEDS: SERTRALINE HCL 50 MG TAB PO SCH ×2 (09:45→20:05)
[2017-02-11] MEDS: PANTOPRAZOLE 20 MG TAB PO SCH (09:45)
[2017-02-11 13:07] VITALS: BP 141/64
--- NOTE | 2017-02-11 18:25 | IPN ---
DATE: 02/11/2017 Patient seen and examined. No acute events overnight. Patient denies any significant pain. Mildly lethargic but arousable. Follows commands. Denies any chest pain, pressure, or discomfort. Patient currently comfort measures only. PHYSICAL EXAMINATION: GENERAL: Patient in no acute distress, comfortable, arousable, mildly lethargic. Follows commands. HEENT: Dry mucous membranes. Normocephalic, atraumatic. NECK: Supple. CARDIAC: Regular rate and rhythm, normal S1, S2. PULMONARY: Bilaterally clear to auscultation. No wheezes, rales, or rhonchi. ABDOMEN: Soft, nontender. Positive bowel sounds. EXTREMITIES: No edema, bilateral lower extremities. ASSESSMENT AND PLAN: This is an 86-year-old female patient with underlying medical history of dementia, baseline ambulatory, hypertension, hypothyroidism, depression, history of multiple risk factors with past history of Sjogren's syndrome. Also with monoclonal gammopathy of undetermined significance (MGUS) who was brought in by family to the emergency room for 2-day history of difficulty walking, painful weightbearing, and also falls. Was found to be bradyarrhythmic. Admitted for pubic symphysis fracture, symptomatic bradycardia, leukocytosis, renal insufficiency. Was found to have methicillin-sensitive Staphylococcus aureus (MSSA) bacteremia. Currently comfort measures only. 1. Pubic symphysis fracture. Orthopedics initially consulted. Weightbearing as per orthopedics. Patient does not tolerate physical therapy. Multiple myeloma workup has been sent. Patient has a history of MGUS. Currently comfort measures only. Pain medication as prescribed. 2. Symptomatic bradycardia. Initially on telemetry. Beta nayely and Aricept have been discontinued. Patient's thyroid function was appreciated. Patient currently comfort measures only. 3. MSSA bacteremia. Repeat blood culture has been sent. Patient initially treated with Rocephin and vancomycin but continued to have bacteremia Given that patient is not eating with dysphagia, patient and family have elected to be comfort measures only. Subsequently, further workup, including echo. Arthrocentesis has been held given family believes that patient does not want any aggressive workup at this point. 4. Leukocytosis secondary to underlying infection. Antibiotic initially given. Cultures appreciated. Patient currently comfort measures only. Antibiotics have been discontinued. 5. Acute kidney injury (RU), unknown baseline. Intravenous (IV) fluids initially provided. Currently discontinued given patient is comfort measures only. Multiple myeloma workup has been sent. Patient has a history of MGUS. 6. Hypothyroidism. Continue Synthroid. 7. Advanced dementia. Supportive care. 8. Delirium. Supportive care. 9. Depression. Continue home medication. 10. Sjogren's syndrome. Continue home medication. 11. Encephalopathy secondary to underlying infection and dementia and also component of pain. Supportive care. 12. Hypertension. Continue blood pressure medication as ordered. 13. Failure to thrive. Severe protein calorie malnutrition. Hospice has been consulted. Supportive care. Ensure supplementation. Comfort feed as patient tolerates. 14. Dysphagia. Pending speech and swallow official evaluation, but patient is not tolerating any oral at this point and has progressively worsening albumin. Hospice has been consulted. 15. Deep vein thrombosis (DVT) prophylaxis. Comfort measures only. Venodyne sequential compression devices. DISPOSITION: Comfort measures only. Hospice consulted.
[2017-02-12] MEDS: LEVOTHYROXINE 0.05 MG TAB (50 MCG) PO SCH (05:16)
[2017-02-12] MEDS: ISOSORBIDE DIN (ISORDIL) 10 MG TAB PO SCH ×3 (05:16→17:00)
[2017-02-12] MEDS: MORPHINE 10MG/0.5ML ORAL CONCENTRATE SOLUTION U/D SL PRN ×3 (06:44→18:45)
[2017-02-12] MEDS: LORazepam 1 MG TAB PO PRN ×2 (06:44→10:52)
[2017-02-12] MEDS: PANTOPRAZOLE 20 MG TAB PO SCH (09:00)
[2017-02-12] MEDS: SENOKOT S TAB PO SCH ×2 (09:00→19:59)
[2017-02-12] MEDS: MIRALAX *UNIT DOSE* 17GM PACKET PO SCH (09:00)
[2017-02-12] MEDS: SERTRALINE HCL 50 MG TAB PO SCH ×2 (09:31→20:00)
--- NOTE | 2017-02-12 14:12 | IPN ---
DATE: 02/12/2017 No acute events overnight. Patient comfortable. Currently comfort measures only. Denies any significant pain, but was lethargic. PHYSICAL EXAMINATION: GENERAL: Patient in no acute distress, comfortable, arousable, but lethargic. HEENT: Dry mucous membranes. NECK: Supple. CARDIAC: Regular rate and rhythm, normal S1, S2. PULMONARY: Bilaterally clear to auscultation. No wheezes, rales, or rhonchi. ABDOMEN: Soft, nontender. Positive bowel sounds. EXTREMITIES: No edema bilateral lower extremities. ASSESSMENT AND PLAN: This is an 86-year-old female patient with underlying medical history of dementia, baseline ambulatory, hypertension, hypothyroidism, depression, history of multiple risk factors with multiple falls and past history of Sjogren's syndrome, also with monoclonal gammopathy of undetermined significance (MGUS) who was brought in by family to the emergency room with a 2-day history of difficulty walking, painful weightbearing, and also falls. She was found to be bradyarrhythmic. Admitted for pubic symphysis fracture, symptomatic bradycardia, leukocytosis and renal insufficiency. Was found to have methicillin-sensitive Staphylococcus aureus (MSSA) bacteremia. Currently on comfort measures only. PROBLEMS: 1. Pubic symphysis fracture. Orthopedics initially consulted. Weightbearing as per orthopedics. Patient does not tolerate physical therapy. Multiple myeloma workup appreciated. Patient has a history of MGUS. Currently comfort measures only. Pain medication as prescribed. 2. Symptomatic bradycardia. Initially on telemetry. Beta nayely and Aricept have been discontinued. Thyroid function appreciated. Comfort measures only. 3. MSSA bacteremia. Blood culture appreciated. Patient initially treated with Rocephin and vancomycin. Given that patient is comfort measures only, no further workup was ordered. Echocardiogram has been canceled and arthrocentesis has also been held given family does not want any further aggressive workup for the patient. 4. Leukocytosis secondary to underlying infection. Initially given antibiotics. Currently on comfort measures only. 5. Acute kidney injury (RU), unknown baseline. Intravenous (IV) fluids given. Multiple myeloma workup appreciated. Currently comfort measures only. 6. Hypothyroidism. Continue Synthroid. 7. Advanced dementia. Supportive care. 8. Delirium. Supportive care. 9. Depression. Continue home medication. 10. Sjogren's syndrome. Continue current medication. Supportive care. 11. Encephalopathy secondary to infection, dementia and pain. Supportive care. 12. Hypertension. Patient currently comfort measures only. Continue medication as tolerated. 13. Failure to thrive. Severe protein calorie malnutrition. Hospice has been consulted. Supportive care. Ensure supplementation as tolerated. Comfort feeding. 14. Dysphagia. Speech and swallow official evaluation done. Patient possibly with dysphagia. Unable to tolerate oral with progressively worsening albumin. Hospice has been consulted. Comfort feeding. 15. Deep vein thrombosis (DVT) prophylaxis. Comfort measures only. Venodyne sequential compression devices. DISPOSITION: Comfort measures only. Hospice consulted.
[2017-02-13] MEDS: MORPHINE 10MG/0.5ML ORAL CONCENTRATE SOLUTION U/D SL PRN ×7 (00:17→21:47)
[2017-02-13] MEDS: LEVOTHYROXINE 0.05 MG TAB (50 MCG) PO SCH (05:55)
[2017-02-13] MEDS: ISOSORBIDE DIN (ISORDIL) 10 MG TAB PO SCH (05:56)
[2017-02-13] MEDS: SENOKOT S TAB PO SCH ×2 (09:00→21:24)
[2017-02-13] MEDS: SERTRALINE HCL 50 MG TAB PO SCH ×2 (09:27→21:25)
[2017-02-13] MEDS: LORazepam 2 MG/ML VIAL (J2060) IV PRN ×3 (09:34→22:34)
--- NOTE | 2017-02-13 15:18 | IPN ---
DATE: 02/13/2017 SUBJECTIVE: Patient seen and examined. No acute events overnight. Denies any significant pain. The patient is a bit anxious and sad, but currently COMFORT MEASURES ONLY. PHYSICAL EXAMINATION: GENERAL: Patient comfortable, in no acute distress. HEENT: Normocephalic. Dry mucous membranes. NECK: Supple. CARDIAC: Regular rate and rhythm. Normal S1, S2. PULMONARY: Bilaterally clear. No wheezes, rales, or rhonchi. ABDOMEN: Soft, nontender. EXTREMITIES: No edema. ASSESSMENT AND PLAN: This is an 86-year-old female patient with underlying medical history of dementia, baseline ambulatory, hypertension, hypothyroidism, depression, history of multiple risk factors with multiple falls, and past history of Sjogren syndrome, also monoclonal gammopathy of unknown significance (MGUS), who was brought in by family to the emergency room with a two-day history of difficulty walking, painful bearing weight and also falls. She was found to be bradyarrhythmic, admitted for pubic symphysis fracture, symptomatic bradycardia, leukocytosis, renal failure, was found to have methicillin-sensitive Staphylococcus aureus (MSSA) bacteremia, currently comfort measures only (PIGMENT PUMPER). PROBLEMS: 1. Pubic ramus fracture. Orthopedics initially consulted. Multiple myeloma workup has been sent. The patient has a history of monoclonal gammopathy of unknown significance (MGUS). Currently PIGMENT PUMPER. Pain medications prescribed. 2. Symptomatic bradycardia. Patient currently PIGMENT PUMPER. Oral medication has been discontinued. Beta nayely and Aricept. 3. Methicillin-sensitive Staphylococcus aureus (MSSA). Cultures appreciated. Treated with Rocephin and vancomycin. The patient currently is PIGMENT PUMPER. Antibiotics have been discontinued. 4. Leukocytosis secondary to underlying infection. Antibiotic initially provided, currently comfort measures only. 5. Acute kidney injury (RU), unknown baseline. Intravenous (IV) fluids were initially provided with improvement. Currently PIGMENT PUMPER. No IV fluids. 6. Hypothyroidism. Continue Synthroid. 7. Advanced dementia. Supportive care. 8. Delirium. Supportive care. 9. Depression. Supportive care. 10. Sjogren syndrome. Supportive care. 11. Encephalopathy secondary to infection, dementia, and pain. Supportive care. 12. Hypertension. Withholding medication. Patient currently PIGMENT PUMPER. 13. Failure to thrive, severe protein calorie malnutrition. Hospice has been consulted. Supportive care. Comfort measures only. Comfort feeding. 14. Dysphagia. Speech and swallow evaluation appreciated. Comfort feeding. 15. Deep venous thrombosis (DVT) prophylaxis. PIGMENT PUMPER. Venodyne. DISPOSITION: Hospice consulted. Patient PIGMENT PUMPER.
[2017-02-14] MEDS: LORazepam 2 MG/ML VIAL (J2060) IV PRN ×5 (03:38→21:21)
[2017-02-14] MEDS: MORPHINE 10MG/0.5ML ORAL CONCENTRATE SOLUTION U/D SL PRN ×6 (04:43→20:04)
[2017-02-14] MEDS: LEVOTHYROXINE 0.05 MG TAB (50 MCG) PO SCH (05:23)
[2017-02-14] MEDS: SERTRALINE HCL 50 MG TAB PO SCH ×2 (07:46→20:11)
[2017-02-14] MEDS: SENOKOT S TAB PO SCH ×2 (07:46→20:11)
--- NOTE | 2017-02-14 11:09 | IPN ---
DATE: 02/14/2017 Patient seen and examined. No acute events overnight. Patient mildly lethargic, but arousable, comfortable. Currently patient is COMFORT MEASURES ONLY. PHYSICAL EXAMINATION: Patient comfortable, in no acute distress. HEENT: Dry mucous membranes. Normocephalic. NECK: Supple. CARDIAC: Mildly tachycardic, regular S1, S2. PULMONARY: Bilaterally clear to auscultation. No wheezes, rales, or rhonchi. ABDOMEN: Soft, nontender. EXTREMITIES: No edema. ASSESSMENT AND PLAN: This is a 86-year-old female patient with underlying medical history of dementia, baseline ambulatory, hypertension, hypothyroidism, depression, history of multiple falls, past history of Sjogren, also monoclonal gammopathy of unknown significance (MGUS), who was brought in by family to the emergency room with a two-day history of difficulty walking, painful bearing weight and also falls. Patient was found to be bradyarrhythmic, admitted for pubic symphysis fracture, symptomatic bradycardia, leukocytosis, methicillin-sensitive Staphylococcus aureus (MSSA) bacteremia, and renal failure, and currently comfort measures only. PROBLEMS: 1. Pubic symphysis fracture. Orthopedics initially consulted. Multiple myeloma workup has been sent. History of monoclonal gammopathy of unknown significance (MGUS). Currently comfort measures only ([employer]). Pain medications as prescribed. 2. Symptomatic bradycardia. Patient currently [employer]. Initially telemetry monitoring. Oral medication has been discontinued including beta nayely and Aricept. 3. Methicillin-sensitive Staphylococcus aureus (MSSA). Cultures appreciated. Initially treated with Rocephin and vancomycin. Currently patient is [employer]. Antibiotic discontinued. 4. Leukocytosis secondary to underlying infection. Antibiotic initially provided, currently comfort measures only. 5. Acute kidney injury (RU), unknown baseline. Intravenous (IV) fluids were initially given. Patient not having much oral. Currently [employer]. No IV fluids. 6. Hypothyroidism. Continue Synthroid. 7. Advanced dementia. Supportive care. 8. Delirium. Supportive care. 9. Depression. Supportive care. 10. Sjogren syndrome. Supportive care. 11. Encephalopathy secondary to infection, dementia, and pain. Supportive care. 12. Hypertension. Withholding home medication. No vital signs. Patient is comfort measures only. 13. Failure to thrive, severe protein calorie malnutrition. Hospice consulted. Supportive care. Comfort feeding. 14. Dysphagia. Speech and swallow appreciated. Diet as recommended by Speech and swallow. Comfort feeding. 15. Deep venous thrombosis (DVT) prophylaxis. [employer]. Venodyne. DISPOSITION: Hospice consulted. [employer].
[2017-02-15] MEDS: MORPHINE 10MG/0.5ML ORAL CONCENTRATE SOLUTION U/D SL PRN ×7 (00:25→23:09)
[2017-02-15] MEDS: LEVOTHYROXINE 0.05 MG TAB (50 MCG) PO SCH (05:05)
[2017-02-15] MEDS: LORazepam 2 MG/ML VIAL (J2060) IV PRN ×5 (07:35→23:08)
[2017-02-15] MEDS: SENOKOT S TAB PO SCH ×2 (09:05→20:38)
[2017-02-15] MEDS: SERTRALINE HCL 50 MG TAB PO SCH ×2 (09:06→20:38)
[2017-02-16] MEDS: LORazepam 2 MG/ML VIAL (J2060) IV PRN ×8 (03:15→23:16)
[2017-02-16] MEDS: MORPHINE 10MG/0.5ML ORAL CONCENTRATE SOLUTION U/D SL PRN ×8 (03:15→23:16)
[2017-02-16] MEDS: LEVOTHYROXINE 0.05 MG TAB (50 MCG) PO SCH ×2 (05:03→20:47)
[2017-02-16] MEDS: SERTRALINE HCL 50 MG TAB PO SCH ×2 (09:00→19:42)
[2017-02-16] MEDS: SENOKOT S TAB PO SCH ×2 (09:00→19:42)
--- NOTE | 2017-02-18 15:55 | DSES ---
DATE OF ADMISSION: 02/06/2017 DATE OF DISCHARGE: 02/17/2017 DATE AND TIME OF : On 02/17/2017 at 12:35 a.m. DISCHARGE DIAGNOSES: 1. Methicillin-sensitive Staphylococcus aureus (MSSA) sepsis. 2. MSSA bacteremia thought to be related to either respiratory tract or skin. 3. Symphysis pubis fracture. 4. Symptomatic bradycardia. 5. Acute kidney injury. 6. Hypothyroidism. 7. Advanced dementia. 8. Dysphagia. 9. Failure to thrive and severe protein-calorie malnutrition. 10. Metabolic encephalopathy. 11. Sjogren's syndrome. 12. Hypertension. 13. M spike in gamma region, possible monoclonal gammopathy of unknown significance (MGUS) and underlying MGUS present. HOSPITAL COURSE: This is an 86-year-old female who presented to the hospital due to history of difficulty walking and painful weightbearing. The patient was found to have symphysis pubis comminuted fracture. On admission, the patient was also noted to have symptomatic bradycardia as well as elevated white count and acute renal failure. The patient's blood cultures were sent which came back positive for methicillin-sensitive Staphylococcus aureus (MSSA). The patient was started on antibiotics. The source of bacteremia was either related to skin as there was some suggestion of cellulitis on the right hand or from lungs. The patient also had advanced dementia and her mental status was worse now with infection and hospitalization. The patient continued to have poor oral intake and also difficulty in swallowing. Percutaneous endoscopic gastrostomy (PEG) tube was discussed with the family. However, in view of her advanced dementia and other comorbidities, they did not want PEG tube. However, the patient continued to have poor oral intake, so subsequently family opted for COMFORT MEASURES ONLY. The patient's antibiotics, blood draws, and other medications were stopped. The patient was given comfort medications with morphine, Ativan, and atropine as required. The patient subsequently became more and more obtunded and gradually became nonresponsive. Subsequently, the patient on 02/17/2017.
== END 2017-02-17 00:35 | disposition expired | DRG 871 ==
LOC: M ED 13:24 → M ED INP 17:40 → M PCU 20:16 → M MSPAV 02-10 14:35
PROVIDERS: ADMIT Internal Medicine; ATTEND Internal Medicine Nephrology
DX: A41.01 Sepsis due to Methicillin susceptible Staphylococcus aureus (principal); E43 Unspecified severe protein-calorie malnutrition; G93.40 Encephalopathy, unspecified; S32.591A Other specified fracture of right pubis, initial encounter for closed fracture; N17.9 Acute kidney failure, unspecified; Q87.1 Congenital malformation syndromes predominantly associated with short stature; E87.2 Acidosis; Z66 Do not resuscitate; Z51.5 Encounter for palliative care; M35.00 Sjogren syndrome, unspecified; E03.9 Hypothyroidism, unspecified; N18.9 Chronic kidney disease, unspecified; R13.10 Dysphagia, unspecified; B95.1 Streptococcus, group B, as the cause of diseases classified elsewhere; F03.90 Unspecified dementia, unspecified severity, without behavioral disturbance, psychotic disturbance, mood disturbance, and anxiety; I13.10 Hypertensive heart and chronic kidney disease without heart failure, with stage 1 through stage 4 chronic kidney disease, or unspecified chronic kidney disease; B95.61 Methicillin susceptible Staphylococcus aureus infection as the cause of diseases classified elsewhere; D47.2 Monoclonal gammopathy; F32.9 Major depressive disorder, single episode, unspecified; E87.6 Hypokalemia; R62.7 Adult failure to thrive; R00.1 Bradycardia, unspecified; Z97.4 Presence of external hearing-aid; Z90.49 Acquired absence of other specified parts of digestive tract; Z90.710 Acquired absence of both cervix and uterus; Z87.891 Personal history of nicotine dependence; Z80.9 Family history of malignant neoplasm, unspecified; Z82.49 Family history of ischemic heart disease and other diseases of the circulatory system; Y92.019 Unspecified place in single-family (private) house as the place of occurrence of the external cause; Y93.01 Activity, walking, marching and hiking; W01.0XXA Fall on same level from slipping, tripping and stumbling without subsequent striking against object, initial encounter; Y99.9 Unspecified external cause status